=== PATIENT | female | born 1985 | race Hispanic/Latino ===

== ENCOUNTER 2020-07-17 21:04 | Emergency (ER) | payer OTHER ==
[~2020-07-17] VITALS: Ht 157.5 cm; Wt 69.9 kg
[2020-07-17] MEDS ORDERED: ZOFRAN4 MG SL (22:29)
[2020-07-17] MEDS ORDERED: TYLENOL # 31 EA PO (22:29)
[2020-07-17] MEDS ORDERED: IBUPROFEN IB200 MG PO (22:29)
== END 2020-07-17 23:29 | disposition home or self-care (01) ==
LOC: FSED 22:18
DX: S92.511A Displaced fracture of proximal phalanx of right lesser toe(s), initial encounter for closed fracture (principal); W22.03XA Walked into furniture, initial encounter; Y93.01 Activity, walking, marching and hiking; Y92.008 Other place in unspecified non-institutional (private) residence as the place of occurrence of the external cause
CPT/HCPCS: 99284